=== PATIENT | female | born 1970 | race Caucasian/White ===

== ENCOUNTER 2021-02-07 10:17 | Emergency (ER) | payer MEDICAID, SELFPAY ==
--- NOTE | ~2021-02-07 | XR_ITS ---
XR chest 1V portable 02/07/2021 11:02 Indication: Seizure. Procedure: AP portable chest Comparison: No prior studies for comparison. Findings: Heart size normal. Central venous catheter tip in SVC. No focal air space disease, pulmonar y edema, pleural effusion or suspected pneumothorax. No acute osseous abnormality. Impression: 1: No acute cardiopulmonary disease. Reviewed, dictated and finalized at location A. Impression: 1: No acute cardiopulmonary disease.
[2021-02-07 10:20] VITALS: BP 114/84; PULSE 63; RESP 16; TEMP 36.4; O2SAT 100
[2021-02-07 10:40] VITALS: PULSE 58
[2021-02-07] MEDS: LORazepam INJ (*CRX) 2 MG/ML VIAL 1 MG IV PUSH (10:49)
[2021-02-07 11:05] LABS: Basophils Percent Auto 0.9 % (0.2-1.2); Eosinophils Absolute Auto 0.1 K/mm3 (0-0.3); Eosinophils Percent Auto 2.3 % (0-4.4); Hematocrit 39.5 % (37.0-47.0); Hemoglobin 13.8 g/dL (12.0-15.0); Immature Granulocyte Absolute 0.01 K/mm3 (0.00-0.031); Immature Granulocyte Percent A 0.2 % (0-0.5); Lymphocytes Absolute Auto 1.02 K/mm3 (0.9-3.2); Lymphocytes Percent Auto 23.9 % (18.3-44.2); Mean Corpuscular HGB Conc 34.9 g/dl (32-36); Mean Corpuscular Hemoglobin 33.3 pg (26-34); Mean Corpuscular Volume 95.4 fl (80-100); Mean Platelet Volume 8.5 fl (7.4-10.4); Monocytes Absolute Auto 0.6 K/mm3 (0.1-0.6); Monocytes Percent Auto 14.5 % (2.6-8.5); Neutrophils Absolute Auto 2.5 K/mm3 (1.3-6.7); Neutrophils Percent Auto 58.2 % (45.5-73.1); Platelet Count Result 186 k/mm3 (150-375); Red Blood Count 4.14 M/mm3 (4.2-5.4); Red Cell Distribution Width 12.2 % (11.5-14.5); White Blood Count 4.3 K/mm3 (4.5-10.0)
--- NOTE | 2021-02-07 11:18 | ED.GENADULT ---
HPI - General Adult General Chief complaint: Seizure Stated complaint: SEIZURE Source: patient Mode of arrival: EMS Limitations: no limitations History of Present Illness HPI narrative: Patient presents via EMS after a suspected seizure. Patient does have a seizure history but states that they are well controlled on her Lamictal and she has not had one for 1 year. Patient takes 25 mg of Lamictal twice a day. Patient states that she has recently relocated to the area from [place] and is working on getting her Medicaid switch. Patient generally takes 1 mg of lorazepam 3 times a day but states over the past few days she has been splitting them in half as she has almost run out. Patient's prescription for the lorazepam is 1 mg 3 times daily as needed, but she has been taking them 3 times a day regularly for a long time. patient states she was sitting during the time of the episode did not fall and hit her head. She states that it was brief and witnessed by her daughter. Patient denies any pain or discomfort at this time. Patient denies any symptoms at this time. Patient is alert and awake and oriented to event. Related Data Home Medications Medication Instructions Recorded Confirmed ibuprofen 600 mg PO TID 02/07/21 lamotrigine [Lamictal] 25 mg PO BID 02/07/21 lorazepam 1 mg PO TID PRN 02/07/21 Allergies Allergy/AdvReac Type Severity Reaction Status Date / Time No Known Allergies Allergy Verified 02/07/21 10:42 Review of Systems Review of Systems: Narrative: CONSTITUTIONAL: Denies fever, chills, or sweats. EYES: Denies visual changes, redness, or discharge. ENT: Denies rhinorrhea, congestion, sore throat, or otalgia. CARDIOVASCULAR: Denies chest pain, palpitations, or edema. RESPIRATORY: Denies cough or dyspnea. GASTROINTESTINAL: Denies abdominal pain, nausea, vomiting, or diarrhea. GENITOURINARY: Denies dysuria or hematuria. SKIN: Denies rash or itching. MUSCULOSKELETAL: Denies back pain, joint pain, or myalgia. NEUROLOGIC: Reports seizure denies headache, numbness, dizziness, or weakness. PSYCHIATRIC: Denies anxiety or depression. Exam Narrative: Exam Narrative: GENERAL: Well-appearing, well-nourished, and in no acute distress. HEAD: Normocephalic, atraumatic. No hematomas or lacerations. EYES: PERRLA and EOMI. ENT: Nares clear, no rhinorrhea or epistaxis. Mucous membranes moist. Oropharynx without tonsillar hypertrophy exudate or other lesions. Bilateral TMs pearly barney nonbulging. No hemotympanum. NECK: Supple. No adenopathy or masses. Range of motion intact. Without pain. CHEST: Clear to auscultation. No respiratory distress. No wheezes rales or rhonchi HEART: Regular rate and rhythm. No murmur heard. Normal peripheral pulses. ABDOMEN: Soft, nontender, nondistended, normal active bowel sounds. EXTREMITIES: Normal range of motion. No edema. SKIN: Warm, dry, no rash. NEURO: No focal deficits. Alert and oriented x3. Speech clear and appropriate. Responses are quick. PSYCH: Normal mood and affect. Course Vital Signs Vital signs: Vital Signs Temperature 97.6 F 02/07/21 10:20 Pulse Rate 63 02/07/21 10:20 Respiratory Rate 16 02/07/21 10:20 Blood Pressure 114/84 02/07/21 10:20 Pulse Oximetry 100 02/07/21 10:20 Temperature 98 F 02/07/21 12:44 Pulse Rate 60 02/07/21 12:44 Respiratory Rate 16 02/07/21 12:44 Blood Pressure 112/82 02/07/21 12:44 Pulse Oximetry 100 02/07/21 12:44 Medical Decision Making MDM Narrative Medical decision making narrative: Patient seizure may have been triggered by her fluctuating dosing of lorazepam. Patient has been instructed to follow-up with her primary care in [place] in order to keep her prescription stable and being established here in [place]. Patient has flexible arc and care managers to create a plan for establishing care and follow-up in order to obtain her prescriptions. Patient does have the Lamictal prescription and has a sm
[2021-02-07 11:20] LABS: Alanine Aminotransferase 69 U/L (4-35); Albumin Level 3.9 g/dL (3.5-5.1); Alkaline Phosphatase 85 U/L (38-126); Anion Gap 2 mmol/L (8-16); Aspartate Amino Transferase 76 U/L (14-36); Bilirubin,Total 0.5 mg/dL (0.2-1.3); Blood Urea Nitrogen 12 mg/dL (7-17); Calcium 9.2 mg/dL (8.4-10.2); Carbon Dioxide 29 mmol/L (22-30); Chloride 101 mmol/L (98-107); Estimated CRCL calculation 100 ml/min; Estimated Glomerular Filt Rate > 60; Glucose 90 mg/dL (65-105); Magnesium 1.8 mg/dL (1.6-2.3); Phosphorus 3.4 mg/dL (2.5-4.5); Sodium 132 mmol/L (137-145)
[2021-02-07 11:51] LABS: Appearance Urine Clear (Clear); Color Urine Yellow (Yellow)
[2021-02-07 11:52] LABS: Add Urine Microscopic? NO; Bilirubin Urine Negative (Negative); Blood Urine Negative (Negative); Glucose Urine UA Negative (Negative); Ketones Urine Negative (Negative); Leukocyte Esterase Ur Negative LEU/UL (Negative); Nitrate Urine Negative (Negative); Protein Urine Negative (Negative); Urobilinogen Urine Negative mg/dL (<2.0)
[2021-02-07 12:10] LABS: Amphetamine Screen Urine Negative (Negative); Barbiturate Screen Urine Negative (Negative); Benzodiazepines Screen Urine Negative (Negative); Cannabinoid Screen Urine Positive (Negative); Cocaine Screen Urine Negative (Negative); Methadone Screen Urine Negative (Negative); Opiate Screen Urine Negative (Negative); Phencyclidine Screen Urine Negative (Negative)
[2021-02-07 12:44] VITALS: BP 112/82; PULSE 60; RESP 16; TEMP 36.6; O2SAT 100
== END 2021-02-07 12:46 | disposition home or self-care (01) ==
PROVIDERS: Physician Assistant; Emergency Provider Emergency Medicine
DX: R56.9 Unspecified convulsions (principal)
CPT/HCPCS: 36415; 71045; 80053; 80307; 81003; 83735; 84100; 85025; 96374; 99284; J2060